=== PATIENT | female | born 1930 | race Caucasian/White ===

== ENCOUNTER 2018-11-18 15:01 | Inpatient (IN) | payer BC, OTHER ==
[~2018-11-18] VITALS: Ht 167.6 cm; Wt 78.7 kg
[2018-11-18] MEDS ORDERED: DEXTROSE 50%-WATER 50 ML DISP.SYRIN ONE (15:14)
--- NOTE | 2018-11-18 15:15 | NUR ---
Verbal Order from MD Gomez D50 1 amp. Given as ordered IVP
--- NOTE | 2018-11-18 15:16 | NUR ---
PRASHANT RA 99 From Home "Daughter called she was shaky. BS on arrival 34- gave 1dose of oral glucose". RR IS EVEN AND UNLABORED WITH NAD NOTED. SKIN IS WARM AND DRY. PLACED ON THE MONITOR. WILL CONTINUOUSLY MONITOR THE PATIENT. DR YU AT BS FOR EVAL.
[2018-11-18 15:26] LABS: BASOPHILS % (AUTO) 0.3 % (0.0-2.0); EOSINOPHILS % (AUTO) 0.7 % (0.0-6.0); HEMATOCRIT 43 % (33-45); HEMOGLOBIN 14.8 g/dL (11.5-14.8); LYMPHOCYTES # (AUTO) 3.1 /CMM (0.8-4.8); MEAN CORPUSCULAR HGB CONC 34 g/dl (31.0-36.0); MEAN CORPUSCULAR VOLUME 98 fL (82-100); MONOCYTES # (AUTO) 0.8 /CMM (0.1-1.30); MONOCYTES % (AUTO) 6.8 % (2.0-12.0); NEUTROPHILS # (AUTO) 7.4 /CMM (1.8-8.9); NEUTROPHILS % (AUTO) 65.2 % (43.0-81.0); PLATELET COUNT (AUTO) 278 /CMM (150-450); RED BLOOD CELL COUNT(AUTO) 4.44 MIL/uL (4.0-5.2); WHITE BLOOD COUNT (AUTO) 11.4 K/uL (4.3-11.0)
[2018-11-18] MEDS ORDERED: IRBE300T19 PO (15:28)
[2018-11-18] MEDS ORDERED: ANAS1TAB8 PO (15:28)
[2018-11-18] MEDS ORDERED: ASPI1CPM PO (15:28)
[2018-11-18] MEDS ORDERED: SITA50TA PO (15:28)
[2018-11-18] MEDS ORDERED: HYDR50TA3 PO (15:28)
[2018-11-18] MEDS ORDERED: METO25TA20 PO (15:28)
[2018-11-18] MEDS ORDERED: LEVO50TA8 PO (15:28)
[2018-11-18] MEDS ORDERED: METF-440 PO (15:28)
--- NOTE | 2018-11-18 15:30 | NUR ---
RADIOLOGY AT BEDSIDE FOR CHEST XRAY.
[2018-11-18 15:48] LABS: CALCIUM, SERUM 9.5 mg/dL (8.5-10.1); CARBON DIOXIDE 27 mmol/L (21-32); CHLORIDE 96 mmol/L (98-107); CREATININE 0.8 mg/dL (0.6-1.3); POTASSIUM 3.4 mmol/L (3.5-5.1); SODIUM SERUM 136 mmol/L (136-145); UREA NITROGEN, BLOOD 22 mg/dL (7-18)
[2018-11-18 15:49] LABS: GLUCOSE 42 mg/dL (74-106)
--- NOTE | 2018-11-18 16:05 | NUR ---
SPOKE TO [employer] SALESPERSON AND WAS ASKED TO FAX FACESHEET [phone]
--- NOTE | 2018-11-18 16:46 | NUR ---
FOLLOWED UP AT DR CHRIS'S OFFICE. THEY WILL CALL ME BACK
--- NOTE | 2018-11-18 17:50 | NUR ---
PT TO RADIOLOGY FOR HEAD CT SCAN VIA [facility].
[2018-11-18] MEDS ORDERED: POTASSIUM CHLORIDE 20 MEQ TAB.PRT.SR PO ONE ×2 (18:00→18:14)
--- NOTE | 2018-11-18 18:03 | NUR ---
BED 106 GIVEN
[2018-11-18] MEDS: IV D5/0.45 NACL 500 ML IV PRN (18:23)
--- NOTE | 2018-11-18 18:26 | NUR ---
REPORT GIVEN TO GREY. PT TRANSFERED. STABLE
[2018-11-18 18:40] VITALS: BP 159/72
--- NOTE | 2018-11-18 18:40 | NUR ---
GRINDER MACHINE KNIFE SETTERV GROOVE CUTTER NOTES RECEIVED PT FROM ER TO ROOM 106.REPORT GIVEN BY MADINA IN ER.PT IS ALERT/ORIENTED X3.ON 1 L O2 VIA NC CONTINUOUSLY.ON TELE HR IS 80 WITH SR.NO SOB AND ACUTE DISTRESS NOTED.CAN AMBULATE WELL WITH 1 PERSON ASSISTANCE.IV LINE ON LEFT AC G20 IS PRESENT WITH IV D5W @75CC/HR IS RUNNING.,SITE IS CLEAN DRY AND INTACT.NO INFILTRATION NOTED.VITAL SIGNS ARE CHECKED.FAMILY IS AT BEDSIDE.SAFETY IS MAINTAINED AT ALL TIMES.BED IS IN LOW POSITION AND LOCKED.CALL LIGHT IS WITHIN REACH.WILL CONTINUE TO MONITOR THE PT CLOSELY.
--- NOTE | 2018-11-18 19:58 | NUR ---
ANTIQUE AUTOMOBILES REPAIRER OPENING NOTES RECEIVED REPORT FROM GREY RN. PATIENT A/A/O X3, ABLE TO MAKE NEEDS KNOWN. BREATHING EVEN & UNLABORED, TOLERATING O2 @ 1-2LPM VIA NC. DENIES ANY SOB OR DIFFICULTY BREATHING. ON TELE W/ SINUS RHYTHM, HR 68. LEFT AC IV #20 INTACT & PATENT W/ DRESSING CDI & IVF D5W INFUSING WELL @ 75 ML/HR. DENIES ANY PAIN OR DISCOMFORT @ THIS TIME. NO S/S OF HYPOGLYCEMIA NOTED. SAFETY MEASURES IN PLACE W/ SIDE RAILS UP & BED ALARM ON. INSTRUCTED TO USE CALL LIGHT FOR ASSISTANCE. WILL CONTINUE TO MONITOR.
[2018-11-18 19:59] VITALS: BP 136/70
[2018-11-18 20:00] VITALS: BP 136/70
[2018-11-18] MEDS ORDERED: DEXTROSE 50%-WATER 50 ML DISP.SYRIN IV PRN (20:30)
[2018-11-18] MEDS: BLOOD SUGAR DIAGNOSTIC 1 EACH STRIP IN SCH (22:16)
[2018-11-18] MEDS ORDERED: INSULIN REGULAR, HUMAN 100 UNIT/ML 3 ML VIAL ONE (22:33)
[2018-11-18] MEDS: INSULIN REGULAR, HUMAN 100 UNIT/ML 3 ML VIAL SQ PRN (22:41)
[2018-11-19] VITALS: BP 129/68
[2018-11-19] MEDS: IV D5/0.45 NACL 500 ML IV PRN (03:20)
[2018-11-19 04:00] VITALS: BP 144/72
[2018-11-19 06:22] LABS: BASOPHILS % (AUTO) 0.3 % (0.0-2.0); EOSINOPHILS % (AUTO) 0.7 % (0.0-6.0); HEMATOCRIT 40 % (33-45); HEMOGLOBIN 13.4 g/dL (11.5-14.8); LYMPHOCYTES # (AUTO) 1.7 /CMM (0.8-4.8); LYMPHOCYTES % (AUTO) 23.7 % (20.0-44.0); MEAN CORPUSCULAR HGB CONC 34 g/dl (31.0-36.0); MEAN CORPUSCULAR VOLUME 98 fL (82-100); MONOCYTES # (AUTO) 0.6 /CMM (0.1-1.30); MONOCYTES % (AUTO) 8.8 % (2.0-12.0); NEUTROPHILS # (AUTO) 4.8 /CMM (1.8-8.9); NEUTROPHILS % (AUTO) 66.5 % (43.0-81.0); PLATELET COUNT (AUTO) 208 /CMM (150-450); RED BLOOD CELL COUNT(AUTO) 4.04 MIL/uL (4.0-5.2); WHITE BLOOD COUNT (AUTO) 7.2 K/uL (4.3-11.0)
[2018-11-19 06:36] LABS: ALBUMIN 3.3 g/dL (3.4-5.0); ALKALINE PHOSPHATASE 50 U/L (46-116); ASPARTATE AMINOTRANSFERASE 17 U/L (15-37); BILIRUBIN,TOTAL 0.5 mg/dL (0.2-1.0); CALCIUM, SERUM 8.8 mg/dL (8.5-10.1); CARBON DIOXIDE 30 mmol/L (21-32); CHLORIDE 100 mmol/L (98-107); CREATININE 0.7 mg/dL (0.6-1.3); GLUCOSE 137 mg/dL (74-106); POTASSIUM 3.8 mmol/L (3.5-5.1); SODIUM SERUM 137 mmol/L (136-145); TOTAL PROTEIN, SERUM 6.5 g/dL (6.4-8.2); UREA NITROGEN, BLOOD 17 mg/dL (7-18)
[2018-11-19 06:50] LABS: ALANINE AMINOTRANSFERASE 19 U/L (12-78)
--- NOTE | 2018-11-19 07:30 | NUR ---
WHEEL ASSEMBLER NOTES PT IN BED, A/OX3. WATCHING TV. OFF BIPAP ON 1L NC. O2 SAT WNL. NO S/SX OF DISTRESS. PT ON SR WITH 1ST DEG AV BLOCK ON TELE. BS 151 MG/DL. DR CHRIS ROUNDING WITH PT. REQUESTS URINE SAMPLE. IV SITE ON LAC #20 RUNNING D5 1/2 NS AT 75ML/HR. BED IN LOCKED/LOWEST POSITION. DISCUSSED POC WITH PT. CALL LIGHT IN REACH. WILL CONT TO MONITOR.
--- NOTE | 2018-11-19 07:41 | NUR ---
RT NOTE PT FOUND OFF OF CPAP. PT ON NC AT 1L. NO DISTRESS NOTED. PT AWAKE AND ALERT. Addendum: 11/19/18 at 0742 by REINIER COPPOLA RT Amended: Links added.
[2018-11-19] MEDS: BLOOD SUGAR DIAGNOSTIC 1 EACH STRIP IN SCH ×2 (07:51→11:57)
[2018-11-19 08:00] VITALS: BP 154/70
[2018-11-19] MEDS: INSULIN REGULAR, HUMAN 100 UNIT/ML 3 ML VIAL SQ PRN ×2 (08:01→12:01)
[2018-11-19] MEDS ORDERED: LEVOTHYROXINE SODIUM 50 MCG TABLET PO SCH (08:30)
[2018-11-19] MEDS ORDERED: ANASTROZOLE 1 MG TABLET PO SCH (09:00)
[2018-11-19] MEDS ORDERED: AGGRENOX(ASA/DIPYRIDAMOLE) 1 CAP CPMP.12HR PO SCH (09:00)
[2018-11-19] MEDS ORDERED: LOSARTAN POTASSIUM 50 MG TABLET PO SCH (09:00)
[2018-11-19] MEDS ORDERED: METOPROLOL TARTRATE 50 MG TABLET PO SCH (09:00)
[2018-11-19 12:00] VITALS: BP 139/77
[2018-11-19 12:28] LABS: APPEARANCE,URINE CLOUDY (CLEAR); BILIRUBIN,URINE NEGATIVE (NEGATIVE); BLOOD, URINE NEGATIVE Ery/uL (NEGATIVE); COLOR,URINE YELLOW (YELLOW); KETONES,URINE NEGATIVE (NEGATIVE); LEUKOCYTE ESTERASE ,URINE NEGATIVE (NEGATIVE); NITRITE, URINE NEGATIVE (NEGATIVE); PROTEIN,URINE NEGATIVE (NEGATIVE); UGLUCOSE 1+ mg/dL (NEGATIVE); UROBILINOGEN,URINE 0.2 EU/dL (0.2)
[2018-11-19 13:02] LABS: BACTERIA,URINE RARE /HPF (None Seen); RBC,URINE 0-2 /HPF (0-2); SQUAMOUS EPITHELIAL CELL,UR FEW /HPF (None Seen); WBC,URINE 0-2 /HPF (0-3)
--- NOTE | 2018-11-19 13:25 | NUR ---
BRUSH MAKER MACHINE NOTES PT DISCHARGED. IV REMOVED. DISCHARGE INSTRUCTIONS GIVEN TO DAUGHTER JUAN M. SILVERER WHEELED PT OUT TO CAR. ALL QUESTIONS AND NEEDS ATTENDED TO.
== END 2018-11-19 13:25 | disposition home or self-care (01) | DRG 101 ==
LOC: ER 15:04 → TELE1 18:13
PROVIDERS: ADMIT Internal Medicine; ATTEND Internal Medicine
DX: R56.9 Unspecified convulsions (principal); E11.649 Type 2 diabetes mellitus with hypoglycemia without coma; E03.9 Hypothyroidism, unspecified; I10 Essential (primary) hypertension; E78.5 Hyperlipidemia, unspecified; Z86.73 Personal history of transient ischemic attack (TIA), and cerebral infarction without residual deficits; F03.90 Unspecified dementia, unspecified severity, without behavioral disturbance, psychotic disturbance, mood disturbance, and anxiety; Z79.84 Long term (current) use of oral hypoglycemic drugs; Z90.11 Acquired absence of right breast and nipple; Z85.3 Personal history of malignant neoplasm of breast; T38.3X5A Adverse effect of insulin and oral hypoglycemic [antidiabetic] drugs, initial encounter; Y92.009 Unspecified place in unspecified non-institutional (private) residence as the place of occurrence of the external cause
CPT/HCPCS: 36415; 70450-TC; 71045-TC; 80048-TC; 80053-TC; 81000-TC; 82962-TC; 85025-TC; 87081-TC; G0378; J1815; J3490; J7070